=== PATIENT | female | born 1955 | race Caucasian/White ===

== ENCOUNTER 2017-12-13 22:08 | Emergency (ER) | payer OTHER ==
[~2017-12-13] VITALS: Ht 175.3 cm; Wt 69.4 kg
[~2017-12-13 22:08] MED LIST: CELEXA40 MG PO; CLINDAMYCIN HC300 MG PO; PROVENTIL,200 INHALA IH
[2017-12-13 22:21] VITALS: BP 119/81
[2017-12-13 23:29] LABS: HEMATOCRIT 48.4 % (36.0-46.0); HEMOGLOBIN 16.7 G/DL (11.9-15.5); MCH 31.9 PG (29.0-34.0); MCHC 34.5 G/DL (30.0-36.0); MCV 92.4 FL (83-99); PLATELET COUNT 321 K/uL (156-360); RBC DIS.WIDTH-CV 15.3 % (11.8-14.6); RBC DIS.WIDTH-SD 52.4 % (39-53); RED BLOOD COUNT 5.24 M/uL (3.80-5.20); WHITE BLOOD COUNT 7.2 K/uL (4.1-10.2)
[2017-12-13 23:39] LABS: CHLORIDE 103 mEq/L (99-109); POTASSIUM 4.6 mEq/L (3.7-5.4); SODIUM 144 mEq/L (136-147)
[2017-12-13 23:41] LABS: GLUCOSE 78 mg/dL (70-99)
[2017-12-13 23:45] LABS: CREATININE 0.8 mg/dL (0.6-1.3); GFR ESTIMATE (CALCULATED) > 59 mL/min/; UREA NITROGEN (BUN) 10 mg/dL (9-23)
[2017-12-14 03:22] LABS: SCHISTOCYTES NONE SEEN
[2017-12-14 03:32] LABS: TROP-I INTERPRETATION NEGATIVE; TROPONIN-I 0.01 ng/mL (0.0-0.30)
[2017-12-15] MEDS ORDERED: ZITHROMAX250 MG PO (00:33)
[2017-12-15] MEDS ORDERED: LIBRIUM25 MG PO (00:33)
[2017-12-15] MEDS ORDERED: THIAMINE HCL100 MG PO (00:33)
== END 2017-12-14 01:55 | disposition left against medical advice (07) ==
LOC: EME 22:08
PROVIDERS: Emergency Medicine
DX: I10 Essential (primary) hypertension (principal); Z53.21 Procedure and treatment not carried out due to patient leaving prior to being seen by health care provider
CPT/HCPCS: 80048; 81003; 83880; 84484; 85027; 85379

== ENCOUNTER 2017-12-14 15:47 | Emergency (ER) | payer OTHER ==
[~2017-12-14] VITALS: Ht 175.3 cm; Wt 63.6 kg
[2017-12-14 16:39] LABS: HEMATOCRIT 48.3 % (36.0-46.0); MCH 32.2 PG (29.0-34.0); MCHC 35.2 G/DL (30.0-36.0); MCV 91.5 FL (83-99); PLATELET COUNT 315 K/uL (156-360); RBC DIS.WIDTH-CV 15.2 % (11.8-14.6); RBC DIS.WIDTH-SD 50.6 % (39-53); RED BLOOD COUNT 5.28 M/uL (3.80-5.20)
[2017-12-14 16:51] LABS: CHLORIDE 105 mEq/L (99-109); POTASSIUM 4.6 mEq/L (3.7-5.4); SODIUM 142 mEq/L (136-147)
[2017-12-14 16:52] LABS: GLUCOSE 96 mg/dL (70-99)
[2017-12-14 16:56] LABS: CREATININE 0.7 mg/dL (0.6-1.3); GFR ESTIMATE (CALCULATED) > 59 mL/min/
[2017-12-14 16:57] LABS: UREA NITROGEN (BUN) 7 mg/dL (9-23)
[2017-12-14 20:37] LABS: SERUM ETHYL ALCOHOL 276 mg/dL
[2017-12-14 22:35] LABS: APPEARANCE SL.HAZY ((CLEAR)); BILIRUBIN NEGATIVE; BLOOD MODERATE; COLOR YELLOW ((YELLOW)); GLUCOSE (STRIP) NEGATIVE; KETONES NEGATIVE; LEUKOCYTES MODERATE; NITRITE NEGATIVE; PROTEIN (STRIP) NEGATIVE; UROBILINOGEN 0.2 MG/DL (0.2-1.0)
[2017-12-14 22:51] LABS: AMPHETAMINE NEGATIVE (500 ng/mL); BARBITURATES NEGATIVE (200 ng/mL); BENZODIAZEPINES NEGATIVE (150 ng/mL); BUPRENORPHINE NEGATIVE (10 ng/mL); COCAINE NEGATIVE (150 ng/mL); METHADONE NEGATIVE (200 ng/mL); METHAMPHETAMINE NEGATIVE (500 ng/mL); OPIATES (MORPHINE) NEGATIVE (100 ng/mL); OXYCODONE NEGATIVE (100 ng/mL); PHENCYCLIDINE NEGATIVE (25 ng/mL); PROPOXYPHENE NEGATIVE (300 ng/mL); THC CANNABINOIDS NEGATIVE (50 ng/mL); TRICYCLIC ANTIDEPRESSANTS NEGATIVE (300 ng/mL)
[2017-12-14 23:12] LABS: BACTERIA RARE /HPF; EPITHELIAL CELLS 2+ /HPF; MUCUS TRACE /LPF; UCUL ADDED? YES
[2017-12-15] MEDS ORDERED: THIAMINE HCL100 MG PO (00:33)
[2017-12-15] MEDS ORDERED: LIBRIUM25 MG PO (00:33)
[2017-12-15] MEDS ORDERED: ZITHROMAX250 MG PO (00:33)
[2017-12-15 00:48] VITALS: BP 189/102
== END 2017-12-15 00:49 | disposition home or self-care (01) ==
LOC: EME 15:47
PROVIDERS: Nurse Practitioner Family
DX: F41.9 Anxiety disorder, unspecified (principal); F32.9 Major depressive disorder, single episode, unspecified; F43.23 Adjustment disorder with mixed anxiety and depressed mood; J18.9 Pneumonia, unspecified organism; F10.10 Alcohol abuse, uncomplicated; F17.200 Nicotine dependence, unspecified, uncomplicated; Z98.84 Bariatric surgery status; J45.909 Unspecified asthma, uncomplicated; I25.10 Atherosclerotic heart disease of native coronary artery without angina pectoris
CPT/HCPCS: 71046; 71275; 80048; 81003; 85027; 87086; 90839; 94640; 99281; 99285; G0480; J0696; J7120

== ENCOUNTER 2018-02-09 19:14 | Emergency (ER) | payer OTHER ==
[~2018-02-09] VITALS: Ht 157.5 cm; Wt 63.6 kg
[~2018-02-09 19:14] MED LIST changes: +LIBRIUM25 MG PO; +THIAMINE HCL100 MG PO; +ZITHROMAX250 MG PO
[2018-02-09 20:47] LABS: HEMOGLOBIN 17.1 G/DL (11.9-15.5); MCH 31.7 PG (29.0-34.0); MCHC 35.6 G/DL (30.0-36.0); MCV 88.9 FL (83-99); PLATELET COUNT 293 K/uL (156-360); RBC DIS.WIDTH-CV 12.9 % (11.8-14.6); RBC DIS.WIDTH-SD 41.8 % (39-53); WHITE BLOOD COUNT 4.9 K/uL (4.1-10.2)
[2018-02-09 20:57] LABS: CHLORIDE 106 mEq/L (99-109); POTASSIUM 4.4 mEq/L (3.7-5.4); SODIUM 144 mEq/L (136-147)
[2018-02-09 20:58] LABS: GLUCOSE 91 mg/dL (70-99)
[2018-02-09 21:02] LABS: CREATININE 0.8 mg/dL (0.6-1.3); GFR ESTIMATE (CALCULATED) > 59 mL/min/; SERUM ETHYL ALCOHOL 339 mg/dL
[2018-02-09 21:03] LABS: UREA NITROGEN (BUN) 14 mg/dL (9-23)
[2018-02-09 21:31] LABS: ABS NEUTROPHIL COUNT 0.9; ANISOCYTOSIS 1+; BAND NEUTROPHILS 1.8 % (0-8.0); BASOPHILS 1.7 %; EOSINOPHIL ABS CT 0; EOSINOPHILS 0.9 % (0-5.0); LYMPHOCYTES 61.4 % (15.0-45.0); MONOCYTES 4.4 % (0-9.0); PLAT.SUFFICIENCY ADEQUATE; SEG.NEUTROPHILS 15.8 % (46.0-76.0)
[2018-02-10 06:34] VITALS: BP 169/88
== END 2018-02-10 06:35 | disposition home or self-care (01) ==
LOC: EME 19:14
PROVIDERS: Emergency Medicine
DX: F10.129 Alcohol abuse with intoxication, unspecified (principal); Y90.8 Blood alcohol level of 240 mg/100 ml or more; F32.9 Major depressive disorder, single episode, unspecified; F41.9 Anxiety disorder, unspecified; J45.909 Unspecified asthma, uncomplicated; F17.200 Nicotine dependence, unspecified, uncomplicated; Z94.7 Corneal transplant status
CPT/HCPCS: 80048; 85025; 90839; G0480